=== PATIENT | male | born 1935 | race Caucasian/White ===

== ENCOUNTER 2018-05-29 08:01 | Day surgery (SDC) | payer MEDICARE, OTHER ==
[~2018-05-29 08:01] MED LIST: ACETAMINOPHEN 1,000 MG/100 ML BTL IV ONE; CELECOXIB 100 MG CAPSULE PO ONE; FAMOTIDINE 20MG TABLET PO ONE; MECLIZINE 25 MG TABLET PO ONE; METOCLOPRAMIDE 10 MG TABLET PO ONE; VANCOMYCIN HCL 1,000 MG in DEXTROSE 5 % IN WATER 250 ML IVPB ONE
[2018-05-29] MEDS ORDERED: MIDAZOLAM HCL 2MG/2ML VIAL IV ONE (08:02)
[2018-05-29] MEDS ORDERED: DEXAMETHASONE 4 MG/ML 1ML VIAL IVP ONE (08:02)
[2018-05-29] MEDS ORDERED: PROPOFOL 10 MG/ML VIAL IV ONE (08:02)
[2018-05-29] MEDS ORDERED: LIDOCAINE 2% MDV (20MG/ML) 20ML VIAL IV ONE (08:02)
[2018-05-29] MEDS ORDERED: TRANEXAMIC ACID 1,000 MG/10 ML ML IV ONE ×2 (08:02)
[2018-05-29] MEDS ORDERED: KETOROLAC 30 MG/ML VIAL IVP ONE (08:02)
[2018-05-29] MEDS ORDERED: BUPIVACAINE LIPOSOME 266MG/20ML VIAL IV ONE (08:02)
[2018-05-29] MEDS ORDERED: BUPIVACAINE 0.5% W/EPI MPF 30 ML VIAL IVP ONE ×2 (08:02)
[2018-05-29] MEDS ORDERED: VANCOMYCIN HCL 1 GM VIAL IVPB ONE ×2 (08:02)
[2018-05-29] MEDS ORDERED: ROPIVACAINE HCL (NAROPIN) /PF 5MG/ML 20ML VIAL IV ONE (08:02)
[2018-05-29] MEDS ORDERED: DIPHENHYDRAMINE HCL 25 MG CAPSULE PO PRN (08:38)
[2018-05-29] MEDS ORDERED: AL HYDROX/MAG HYDROX 30ML UD PO PRN (08:38)
[2018-05-29] MEDS ORDERED: HYDROCODONE/APAP 5/325MG TABLET PO PRN ×2 (08:38)
[2018-05-29] MEDS ORDERED: ACETAMINOPHEN 325 MG TAB PO PRN (08:38)
[2018-05-29] MEDS ORDERED: MAGNESIUM HYDROXIDE 30 ML UDC PO PRN (08:38)
[2018-05-29] MEDS ORDERED: HYDROMORPHONE HCL 2 MG/ML VIAL IM PRN ×2 (08:38)
[2018-05-29] MEDS ORDERED: PROMETHAZINE HCL 12.5 MG in 0.9 % SODIUM CHLORIDE 100ML 50 ML IVPB PRN (08:38)
[2018-05-29] MEDS ORDERED: METOCLOPRAMIDE HCL 10 MG/2 ML VIAL IVP PRN (08:38)
[2018-05-29] MEDS ORDERED: ONDANSETRON HCL IV 4 MG/2 ML VIAL IVP PRN (08:38)
[2018-05-29] MEDS ORDERED: NALOXONE 0.4 MG/1 ML VIAL IVP PRN (08:38)
[2018-05-29] MEDS ORDERED: KETOROLAC 30 MG/ML VIAL IVP PRN ×2 (08:38)
[2018-05-29] MEDS ORDERED: ACETAMINOPHEN W/ CODEINE 300MG/30MG TABLET PO PRN ×2 (08:38)
[2018-05-29] MEDS ORDERED: BISACODYL 10 MG SUPP RC PRN (08:38)
[2018-05-29] MEDS ORDERED: HYDROCODONE/APAP 7.5/325MG TABLET PO PRN ×2 (08:38)
[2018-05-29] MEDS ORDERED: ACETAMINOPHEN W/ CODEINE 300MG/60MG TABLET PO PRN ×2 (08:38)
[2018-05-29] MEDS ORDERED: ZOLPIDEM TARTRATE 5 MG TABLET PO PRN (08:38)
[2018-05-29 08:56] LABS: ABO GROUP O; ANTIBODY SCREEN NEGATIVE (NEGATIVE); RH TYPE POSITIVE
[2018-05-29 09:33] LABS: INR 1.1; PROTHROMBIN TIME (PATIENT) 10.9 SECONDS (9.5-12.1)
[2018-05-29] MEDS ORDERED: DEXTROSE 5 % AND 0.9 % NACL 1,000 ML IV PRN (12:30)
[2018-05-29] MEDS: DOCUSATE SODIUM 100 MG CAPSULE PO SCH ×2 (13:41→22:08)
[2018-05-29] MEDS: FERROUS SULFATE 325 MG TAB PO SCH ×2 (13:41→22:08)
[2018-05-29] MEDS: PREDNISOLONE ACETATE 1% OPTH 10ML BOTTLE OPTH SCH (14:08)
--- NOTE | 2018-05-29 15:31 | Rehab Evaluation ---
Patient Information - Patient Information Diagnosis: R knee OA Ordered Treatment: PT Evaluate and Treat Status: Initial Evaluation Surgery: Yes (R TKA) Date of Surgery: 05/29/18 Past Medical/Surgical Hx: PAST MEDICAL/SURGICAL HISTORY Past Surgical History bilat hip arthroplasy pacemaker 2015 c scope bilat cat cardioversions heart cath PMH - Respiratory Hx Respiratory Disorders Yes Hx Pneumonia Yes: as a kid Hx Sleep Apnea Yes Hx of CPAP Yes PMH - Cardiovascular Hx Cardiovascular Disorders Yes Hx Abnormal EKG Yes Hx Cardiac Catheterization Yes Hx Deep Vein Thrombosis Yes: 7-10 yrs ago Hx Hypertension Yes: on meds good control Hx Irregular Heartbeat Yes Hx Pacemaker/Defibrillator Yes: 2016 Hx Vascular Disease Yes: LE Exercise Tolerance Fair PMH - Neuro Hx Neurological Disorders Yes Hx Headaches Yes: occass PMH - GI Hx Gastrointestinal Disorders Yes PMH - Hx Genitourinary Disorders No PMH - Endocrine Hx Endocrine Disorders No PMH - Musculoskeletal Hx Musculoskeletal Disorders Yes Hx Arthritis Yes PMH - Psych Hx Psychiatric Problems Yes Hx Anxiety Yes PMH - Hematology/Oncology Hx Hematology/Oncology Yes Disorders Hx Bruising Yes: bruises easily Hx Clotting Problems Yes Hx Blood Transfusion Reaction No Premorbid Status: Detail (Patient was previously IND with all mobility and transfers. Patient used a cane during ambulation.) Social History: Detail (Patient lives in a 1 story home with her spouse. Patient has 2 steps to enter the home with no hand rails. Patient has a walk in shower and an elevated toilet in the bathroom. Patient owns a front wheeled walker, cane, and shower bench.) Precautions: [place], Fall, Other (WBAT on R LE.) - Time With Patient Total Time Spent With Patient (Min): 30 Treatment Procedures: Detail (Initial evaluation, gait training, and exercise education.) Subjective Information - Subjective Information Per Patient (Patient was lying supine in bed upon arrival with no complaints of pain.) Objective Data - Pain Pain Present: No - Mental Status Patient Orientation: Oriented x3 - Visual Perception Appears within normal limits for therapeutic activities - ROM Not within normal limits (Patients R knee ROM is limited due to status post surgery.) - Strength/Tone Not within normal limits (Patient has functional strength during ambulation. Patient has limited R knee strength due to status post surgery.) - Bed Mobility Independent (Patient was IND with supine to and from sit transfers.) - Transfers Independent (Patient is IND with sit to and from stand transfers. Patient required verbal cues for hand placement.) - Balance Balance Sitting: Good Balance Standing: Fair - Sensation Intact - Gait Detail (Patient ambulated approx 200' using a front wheeled walker and supervision for safety. WBAT on R LE.) Therapy Assessment - Therapy Assessment Detail (Evaluation was of low complexity due to stable condition. Patient was IND with all mobility and transfers. Feel patient will progress well with continued PT. Patient was left lying supine in bed with call light in reach.) Patient Education - Patient Education Teaching Topic: Exercise/Activity (ankle pumps, glut sets, quad sets, hamstring sets, heel slides, SLR.) Response: Return Demonstration, Verbalize Understanding Teaching Method: Discussion, Demonstration Teaching Recipient: Patient Barriers To Learning: Age Related Problem List - Problem List Physical Therapy Problem List: Detail (1) R knee ROM 2) R knee strength) Goals - Goals Physical Therapy Goals: 1) Patient will ambulate a flight of 3 stairs using a folded walker, hand rail, and supervision for safety with proper technique. Prognosis - Prognosis Good Plan - Plan Physical Therapy Plan: Patient will be seen 1-2 more times for stair training. Patient will then be discharged to home PT.
[2018-05-29] MEDS: TRAMADOL HCL 50 MG TABLET PO PRN ×2 (16:29→20:19)
[2018-05-29] MEDS: VANCOMYCIN HCL 1,000 MG in DEXTROSE 5 % IN WATER 250 ML IVPB SCH ×2 (20:19)
[2018-05-29] MEDS: SOTALOL HCL 80 MG TABLET PO SCH (22:08)
[2018-05-30 06:41] LABS: HEMATOCRIT 36.9 % (42.0-52.0); HEMOGLOBIN 12.4 gm/dl (14.0-18.0)
[2018-05-30] MEDS: TRAMADOL HCL 50 MG TABLET PO PRN ×2 (07:34→13:09)
--- NOTE | 2018-05-30 08:44 | Rehab Evaluation ---
Patient Information - Patient Information Diagnosis: R knee OA Ordered Treatment: OT Evaluate and Treat Status: Initial Evaluation Surgery: Yes (R TKA) Date of Surgery: 05/29/18 Past Medical/Surgical Hx: PAST MEDICAL/SURGICAL HISTORY Past Surgical History bilat hip arthroplasy pacemaker 2015 c scope bilat cat cardioversions heart cath PMH - Respiratory Hx Respiratory Disorders Yes Hx Pneumonia Yes: as a kid Hx Sleep Apnea Yes Hx of CPAP Yes PMH - Cardiovascular Hx Cardiovascular Disorders Yes Hx Abnormal EKG Yes Hx Cardiac Catheterization Yes Hx Deep Vein Thrombosis Yes: 7-10 yrs ago Hx Hypertension Yes: on meds good control Hx Irregular Heartbeat Yes Hx Pacemaker/Defibrillator Yes: 2016 Hx Vascular Disease Yes: LE Exercise Tolerance Fair PMH - Neuro Hx Neurological Disorders Yes Hx Headaches Yes: occass PMH - GI Hx Gastrointestinal Disorders Yes PMH - Hx Genitourinary Disorders No PMH - Endocrine Hx Endocrine Disorders No PMH - Musculoskeletal Hx Musculoskeletal Disorders Yes Hx Arthritis Yes PMH - Psych Hx Psychiatric Problems Yes Hx Anxiety Yes PMH - Hematology/Oncology Hx Hematology/Oncology Yes Disorders Hx Bruising Yes: bruises easily Hx Clotting Problems Yes Hx Blood Transfusion Reaction No Premorbid Status: Detail (Patient was previously IND with all mobility and transfers. Patient used a cane during ambulation.) Social History: Detail (Patient lives with spouse in a 1 story home with basement, he generally stays on the main floor. Patient has 2 steps to enter the home with no hand rails. Patient has a walk in shower, no grab bars and an elevated toilet in the bathroom. He is planning to purchase a seat for the shower. Patient owns a front wheeled walker, cane, and securities consultant.) Precautions: [place], Fall, Other (WBAT on R LE.) - Time With Patient Total Time Spent With Patient (Min): 30 Treatment Procedures: Detail (OT eval low complexity) Subjective Information - Subjective Information Per Patient Objective Data - Pain Pain Present: Yes (3-510) - Mental Status Patient Orientation: Oriented x3 - Visual Perception Appears within normal limits for therapeutic activities - ROM Within normal limits (Franki UE AROM WNL) - Strength/Tone Within normal limits (Franki UE strength WNL) - Coordination Appears within normal limits for therapeutic activities - Bed Mobility Independent (Ind with supine to sit) - Transfers Independent - Balance Balance Sitting: Good Balance Standing: Good - Sensation Intact - ADL's/IADL's Detail (Pt verbalized that he was able to complete self cares with assistance and his spouse would be available if he needed help. He did not feel it was necessary to perform dressing tasks today. Pt educated re: kitchen and shower safety and modifications, he verbalized learning.) Therapy Assessment - Therapy Assessment Detail (Pt feels he will not have any difficulty with self cares and will assist as needed.) Problem List - Problem List Physical Therapy Problem List: Detail (1) R knee ROM 2) R knee strength) Occupational Therapy Problem List: Detail (No current IP OT problems identified. ) Goals - Goals Physical Therapy Goals: 1) Patient will ambulate a flight of 3 stairs using a folded walker, hand rail, and supervision for safety with proper technique. Occupational Therapy Goals: No current IP OT goals identified. Prognosis - Prognosis Good Plan - Plan Physical Therapy Plan: Patient will be seen 1-2 more times for stair training. Patient will then be discharged to home PT. Occupational Therapy Plan: No further IP OT recommended. Thank you for this referral.
[2018-05-30] MEDS: FERROUS SULFATE 325 MG TAB PO SCH (09:29)
[2018-05-30] MEDS: SOTALOL HCL 80 MG TABLET PO SCH (09:30)
[2018-05-30] MEDS: DOCUSATE SODIUM 100 MG CAPSULE PO SCH (09:30)
[2018-05-30] MEDS: PREDNISOLONE ACETATE 1% OPTH 10ML BOTTLE OPTH SCH (09:31)
--- NOTE | 2018-05-30 09:44 | Physical Therapy Tx Note ---
Physical Therapy Tx Note - Treatment Note Tolerated: Good Total Time Spent With Patient: 20 Physical Therapy Tx Note: Detail (Patient was lying supine in bed upon arrival with no complaints of pain. Patient ambulated approx. 150' using a front wheeled walker and supervision for safety. Patient also ambulated a flight of 3 stairs x 2. Once using a folded walker, hand rail and supervision, and once using a cane, hand rail and supervision with proper technique. Patient was left sitting EOB with call light in reach.) Physical Therapy Problem List: Detail (1) R knee ROM 2) R knee strength) Physical Therapy Goals: 1) Patient will ambulate a flight of 3 stairs using a folded walker, hand rail, and supervision for safety with proper technique. ( Goal Met) Prognosis: Good Physical Therapy Plan: Patient has met all IP PT goals and will be discharged to home PT.
[2018-05-30] MEDS: VANCOMYCIN HCL 1,000 MG in DEXTROSE 5 % IN WATER 250 ML IVPB SCH ×2 (09:54)
[2018-05-30] MEDS ORDERED: VALSARTAN 80 MG TAB PO SCH (10:00)
[2018-05-30] MEDS ORDERED: RIVAROXABAN 10 MG TABLET PO SCH (10:00)
[2018-05-30] MEDS ORDERED: CELECOXIB 100 MG CAPSULE PO SCH (10:00)
[2018-05-30] MEDS ORDERED: DILTIAZEM HCL 120 MG ER CAPSULE PO SCH (10:00)
[2018-05-30] MEDS ORDERED: WARFARIN 1 MG TABLET PO SCH (17:00)
[2018-05-30] MEDS ORDERED: WARFARIN 5 MG TAB PO SCH (17:00)
--- NOTE | 2018-05-30 20:42 | Operative Note ---
DATE OF SURGERY: 05/29/2018 PREOPERATIVE DIAGNOSIS: End-stage right knee arthrosis. POSTOPERATIVE DIAGNOSIS: End-stage valgus right knee arthrosis. PROCEDURE: Right total knee arthroplasty. SURGEON: Michael Connell M.D. ANESTHESIA: Spinal. COMPLICATIONS: None. BLOOD LOSS: Minimal. OPERATIVE FINDINGS: Severe [id number] arthrosis, severe osteoporosis of the bone. COMPONENTS PLACED: [employer] Journey II Oxinium total knee arthroplasty system, Jumbo size 9 femoral component, size 8 tibial baseplate, a 9 mm thick tibial poly insert, and a 38 mm cemented patellar component. INDICATIONS FOR OPERATION: This is a 82-year-old male who has had end-stage knee arthrosis for several years. He failed nonoperative treatment and is scheduled for total knee arthroplasty. I explained the risks and benefits to him in detail for his diagnosis and procedures including but not limited to, infection, nerve injury, vessel injury, persistent pain, subsequent numbness and tingling in the knee, periprosthetic fracture, need for resection arthroplasty should the components become infected or loosened, nerve injury, vessel injury, blood clot, need for anticoagulation to prevent blood clots and the risks associated with these medications and need for further procedures and all of his questions were answered. Rehab and course were outlined and he agreed to proceed. PROCEDURE: The patient was brought into the O.R. and placed in the supine position for proper surgery. He had spinal anesthesia induced and her right lower extremity was prepped and draped in sterile fashion. The right knee was prepped again with ChloraPrep after it was draped. Intraoperative time-out was performed. The knee was injected with 0.5% Marcaine with Epinephrine. The leg was exsanguinated with an Esmarch. The knee was flexed and the tourniquet inflated to 215 mmHg pressure. Next, the skin and subcutaneous tissues were dissected down to the capsule. I incised the capsule medially around the medial border of the of the patella to the tibial tubercle. I incised the vastus medialis in line with its fibers in a mid vastus approach. I everted the patella. I partially resected the retropatellar fat pad and elevated the capsule subperiosteally and medially and exposed the knee and flexed the knee. He had severe [id number] arthrosis and massive size knee as well. There was severe erosion into the medial tibial plateau. Next, we drilled an intercondylar drill hole and inserted the intramedullary guide katiuska with 6 degree cutting block, aligned off the distal femoral condyles and pinned it in +2 mm position and cut the distal femoral condyles. We placed the sizing jig on the distal femoral condyles. It was sized on size 11. We don't have an 11 or a 10. The largest we have is 9 Jumbo. That's the largest they make and we used that. We placed the size 9 cutting jig off the previously placed pinholes and then dialed in the anterior cut anteriorly so it would come out flush and as far anterior as we could and cut that. It was a good cut with slight notching only, no significant notching. We pinned it and then cut the remainder of the chamfer cuts in the usual fashion. Next, we placed the size 9 femoral component, centered it, pinned it, removed osteophytes off the periphery, inserted the resection collet and reamed out and box osteotomed out the cruciate bone block. Next, then attention was turned to the tibia. We inserted the external alignment jig and spikes in the intertubercular groove two fingerbreadths distally off the anterior tibial cortex and referenced for a 9 mm cut off the higher lateral plateau to just cover the medial erosion, which it did using our resection checking blade and then we pinned that in place provisionally with two anterior and posterior pins. We rechecked the alignment with a drop katiuska centered on the tibial anatomic axis, cross-pinned the cutting jig to complete its fixation and cut the tibia. Next, we removed osteophytes from the posterior femoral condyles and checked flexion and extension gaps. They were symmetric with a 9 mm thick poly insert. Overall alignment of the cuts in extension with an anatomic valgus orientation with the alignment katiuska centered on the hip joint and ankle joint. We took the knee into flexion. We sized the tibial baseplate to a size 8. We replaced all trial components and set the rotation of the tibial baseplate again in extension using the alignment katiuska centered on the hip joint and ankle joint. We marked with electrocautery purdy on the anterior tibial cortex off the laser purdy on the tibial baseplate. Attention was turned to the patella. We sized the massive patella and set the cutting jig at 12 mm to allow for a 9 mm thick poly insert. It was thin but had a large diameter. We cut the patella and chamfered off the lateral patellar facet. We medialized as much as possible and drilled three peg holes. It measured to be 38, which is the maximum size again. We removed osteophytes off the periphery. We placed the trial patellar component. We mixed cement. We did a trial range of motion. The patella tracked nicely handsfree. He had full extension, 0 flexion to 140 to 150 degrees and again symmetric flexion and extension gaps. We took the knee in flexion and seated the tibial baseplate off the previously placed electrocautery purdy. We pinned it in place and then reamed out and keel-punched the keel hole. Next, then we changed gloves and brought in a clean sheet. We copiously irrigated the bony surfaces with pulse lavage and antibiotic solution. We pre- coated both surfaces. We impacted down the tibial component first and then the femoral component and placed the trial tibial poly liner. We held the knee in extension. We clamped down the patellar component until cement hardened. Once cement hardened, we took the knee into flexion and distracted the knee with bone hook and sponge. We removed excess cement around the edges of the components. We injected our pain mixture of tranexamic acid, Exparel, and 0.5% Marcaine with Epinephrine into the posterior medial and lateral capsule, periosteum medial and lateral working deep to superficial, vastus medialis and quadriceps and patellar tendon. Next, we then inserted the real tibial poly inserted and verified it was interlocking medially and laterally. Final range of motion revealed the same. We irrigated copiously. We closed the knee in flexion with a #2 running Quill. We irrigated again and closed the skin deep with #2-0 Vicryl and sterile dressing was applied with Acticoat and the provisional dressing. It will changed prior to discharge tomorrow to LAURA dressing left on for one week. The patient tolerated the procedure well. No intraoperative complications. All sponge, needle, and blade counts correct. Recovery stable, neurovascularly intact. CC: Dr. Robert Skelton JOB NUMBER: [id number] MTDD
== END 2018-05-30 17:00 | disposition home health service (06) ==
LOC: SUR 08:01 → MEDSURG 13:05 → SUR 05-30 17:00
PROVIDERS: ATTEND Orthopaedic Surgery
DX: M17.11 Unilateral primary osteoarthritis, right knee (principal); I10 Essential (primary) hypertension; I48.91 Unspecified atrial fibrillation; Z79.01 Long term (current) use of anticoagulants; I25.10 Atherosclerotic heart disease of native coronary artery without angina pectoris; G47.33 Obstructive sleep apnea (adult) (pediatric); Z95.0 Presence of cardiac pacemaker
CPT/HCPCS: 27447; 01402; 64417; 85018; 85014; 85610; 86900; 86901; 86850; 94760; 76942; J1885; J3370 ×2; C9290; J3490; J2795; G8978; G8979 ×2; G8980; G8987; G8988; G8989; J7042; J7060

== ENCOUNTER 2019-06-04 06:09 | Day surgery (SDC) | payer MEDICARE, OTHER ==
--- NOTE | 2019-05-30 14:35 | Rehab Joint Replacement Pre-Op ---
Rehab Joint Replacement Pre-Op - Pre-Op Visit Reviewed Items Scheduled for Post Op Visit: No Pre-Op Visit Comment: Pt states that he has had his right knee replaced a year ago and still has all equipment needed for follow up care. Mina Hose/Garment Measurement TKR - Knee High: N/A Mina Hose/Garment Measure THR - Thigh High: Yes (Ankle circumference 10 1/4", calf 18", thigh 25", leg length 33" from gluteal fold to heel. Pt measures for x-large long compression garments.) Exercise Reviewed: Yes Stair Climbing: Yes Cane/Walker/Crutch Training: Yes Vend Equipment - Cane or Walker and OT Kit: N/A List of Venders in the Area: Yes Shower Chair Transfers: Yes Car Transfers: Yes Bed Transfers: Yes Medical History Forms Issued: N/A Functional Scale Forms Issued: N/A Pre-Operative Intake Form - Scheduled Procedure Type of Surgical Procedure: Total Knee - Left - Patient Living Situation Current Living Situation: Spouse/Significant Other Current Housing Situation: One Story Home - Entrance Detail Current Housing Entrance: Steps, Hand Rails - None Number of Steps: 2 - Bathroom Detail Bathroom Setup: Walk-In Shower Toilet Setup: Elevated Toilet, Grab Bars Not Present (Pt uses a toilet bracket with handles for assistance.) - Post-Op Home Assistance Pt has meals following surgery?: Yes Pt has transportation following surgery?: Yes - Equipment Detail Currently Own/Have Access To: Walker, Cane, Shower Bench - Work Status Current Work Status: Currently Employed - PT Employer: Pt drives for [employer] - Additional Detail Patient Returning Home In: Car Patient is scheduled for the following: Home PT (Pt to have in home PT x 2 weeks then outpatient PT to continue therapy at clinic in [place].)
[~2019-06-04 06:09] MED LIST changes: -ACETAMINOPHEN 1,000 MG/100 ML BTL IV ONE; +ACETAMINOPHEN 500 MG TABLET PO ONE; +CEFAZOLIN 1 Gram 1 GM/50 ML BAG IVPB ONE; +CEFAZOLIN 2 Gram 2 GM/50 ML BAG IVPB ONE; -MECLIZINE 25 MG TABLET PO ONE; +SCOPOLAMINE 1 PATCH TDSY TD ONE; +VANCOMYCIN 1GM/200ML PREMIX 1 GM/200 ML PIGGYBACK IVPB ONE; -VANCOMYCIN HCL 1,000 MG in DEXTROSE 5 % IN WATER 250 ML IVPB ONE
[2019-06-04] MEDS ORDERED: PROPOFOL 10 MG/ML VIAL IV ONE (06:10)
[2019-06-04] MEDS ORDERED: DEXAMETHASONE 4 MG/ML 1ML VIAL IVP ONE (06:10)
[2019-06-04] MEDS ORDERED: MIDAZOLAM HCL 2MG/2ML VIAL IV ONE (06:10)
[2019-06-04] MEDS ORDERED: ROPIVACAINE HCL (NAROPIN) /PF 5MG/ML 20ML VIAL IV ONE (06:10)
[2019-06-04] MEDS ORDERED: LIDOCAINE 2% MDV (20MG/ML) 20ML VIAL IV ONE (06:10)
[2019-06-04] MEDS ORDERED: RINGERS SOLUTION,LACTATED 1,000 ML IV ONE ×2 (06:30→08:36)
[2019-06-04 06:35] LABS: PROTHROMBIN TIME (PATIENT) 10.4 SECONDS (9.5-12.1)
[2019-06-04] MEDS ORDERED: HYDROMORPHONE HCL 2 MG/ML VIAL IM PRN ×2 (08:08)
[2019-06-04] MEDS ORDERED: MAGNESIUM HYDROXIDE 30 ML UDC PO PRN (08:08)
[2019-06-04] MEDS ORDERED: TRAMADOL HCL 50 MG TABLET PO PRN ×2 (08:08)
[2019-06-04] MEDS ORDERED: ACETAMINOPHEN 325 MG TAB PO PRN (08:08)
[2019-06-04] MEDS ORDERED: ZOLPIDEM TARTRATE 5 MG TABLET PO PRN (08:08)
[2019-06-04] MEDS ORDERED: NALOXONE 0.4 MG/1 ML VIAL IVP PRN (08:08)
[2019-06-04] MEDS ORDERED: DIPHENHYDRAMINE HCL 25 MG CAPSULE PO PRN (08:08)
[2019-06-04] MEDS ORDERED: HYDROCODONE/APAP 5/325MG TABLET PO PRN ×2 (08:08)
[2019-06-04] MEDS ORDERED: AL HYDROX/MAG HYDROX 30ML UD PO PRN (08:08)
[2019-06-04] MEDS ORDERED: METOCLOPRAMIDE HCL 10 MG/2 ML VIAL IVP PRN (08:08)
[2019-06-04] MEDS ORDERED: PROMETHAZINE HCL 12.5 MG in 0.9 % SODIUM CHLORIDE 100ML 50 ML IVPB PRN (08:08)
[2019-06-04] MEDS ORDERED: KETOROLAC 30 MG/ML VIAL IVP PRN (08:08)
[2019-06-04] MEDS ORDERED: ACETAMINOPHEN W/ CODEINE 300MG/30MG TABLET PO PRN ×2 (08:08)
[2019-06-04] MEDS ORDERED: ONDANSETRON HCL IV 4 MG/2 ML VIAL IVP PRN (08:08)
[2019-06-04] MEDS ORDERED: BISACODYL 10 MG SUPP RC PRN (08:08)
[2019-06-04] MEDS ORDERED: HYDROCODONE/APAP 7.5/325MG TABLET PO PRN (08:08)
[2019-06-04] MEDS ORDERED: ACETAMINOPHEN W/ CODEINE 300MG/60MG TABLET PO PRN (08:08)
[2019-06-04 08:12] LABS: ABO GROUP O; ANTIBODY SCREEN NEGATIVE (NEGATIVE); RH TYPE POSITIVE
[2019-06-04] MEDS ORDERED: TRANEXAMIC ACID 1,000 MG/10 ML ML IU ONE (08:33)
[2019-06-04] MEDS ORDERED: BUPIVACAINE 0.5% W/EPI MPF 30 ML VIAL SQ ONE (08:33)
[2019-06-04] MEDS ORDERED: BUPIVACAINE LIPOSOME 266MG/20ML VIAL SQ ONE (08:33)
[2019-06-04] MEDS ORDERED: TRANEXAMIC ACID 1,000 MG/10 ML ML IV ONE (08:35)
[2019-06-04] MEDS ORDERED: DOCUSATE SODIUM 100 MG CAPSULE PO SCH (10:00)
[2019-06-04] MEDS ORDERED: FERROUS SULFATE 325 MG TAB PO SCH (10:00)
[2019-06-04] MEDS ORDERED: DEXTROSE 5 % AND 0.9 % NACL 1,000 ML IV PRN (10:30)
--- NOTE | 2019-06-04 15:03 | Rehab Evaluation ---
Patient Information - Patient Information Diagnosis: L knee DJD Ordered Treatment: PT Evaluate and Treat Status: Initial Evaluation Surgery: Yes (L TKA) Date of Surgery: 06/04/19 Past Medical/Surgical Hx: PAST MEDICAL/SURGICAL HISTORY Past Surgical History RTKA 05-29-18 bilat hip arthroplasy pacemaker 2015 c scope bilat cat cardioversions heart cath PMH - Respiratory Hx Respiratory Disorders Yes Hx Pneumonia Yes: as a kid Hx Sleep Apnea Yes Hx of CPAP Yes PMH - Cardiovascular Hx Cardiovascular Disorders Yes Hx Abnormal EKG Yes Hx Cardiac Catheterization Yes Hx Deep Vein Thrombosis Yes: 2011 Hx Hypertension Yes: on meds good control Hx Irregular Heartbeat Yes: A FIB CONTROLLED WITH MEDS Hx Pacemaker/Defibrillator Yes: 2015 Hx Vascular Disease Yes: LE Exercise Tolerance Fair PMH - Neuro Hx Neurological Disorders Yes Hx Headaches Yes: HX OF VERY RARE NOW PMH - GI Hx Gastrointestinal Disorders Yes PMH - Hx Genitourinary Disorders No PMH - Endocrine Hx Endocrine Disorders No PMH - Musculoskeletal Hx Musculoskeletal Disorders Yes Hx Arthritis Yes: LEFT KNEE PMH - Psych Hx Psychiatric Problems Yes Hx Anxiety Yes PMH - Hematology/Oncology Hx Hematology/Oncology Yes Disorders Hx Bruising Yes: bruises easily Hx Clotting Problems Yes Hx Blood Transfusion Reaction No Premorbid Status: Detail (The patient was independent with all mobility prior to surgery.) Social History: Detail (The patient lives with spouse in a one story house with two steps and no railings at the enterance. The bathroom is equipped with: a walk in shower, shower bench, elevated toilet and riser seat with hand rails. No grab bars were present in the bathroom. The patient has a front wheeled walker, single point cane .) Precautions: [place], Fall, Other (WBAT on L LE) - Time With Patient Total Time Spent With Patient (Min): 30 Treatment Procedures: Detail (Initial Evaluation, low complexity) Subjective Information - Subjective Information Per Patient (The patient had only minimal complaints of pain.) Objective Data - Mental Status Patient Orientation: Oriented x3 - Visual Perception Appears within normal limits for therapeutic activities - ROM Not within normal limits (The patient's L knee AROM is limited as to be expected following surgery.) - Strength/Tone Not within normal limits (The patient's L LE strength was not tested s/p surgery, however was functional. R LE strength was WNL.) - Transfers Independent (The patient was independent with sit to and from stand transfer.) - Balance Balance Sitting: Good Balance Standing: Good - Gait Detail (The patient ambulated with front wheeled walker WBAT on the L LE a distance of 444 feet x 1 with supervision for safety only.) Therapy Assessment - Therapy Assessment Detail (The patient was independent with sit to and from stand transfer and ambulation. Bed mobility was not tested secondary to patient was up in chair when PT arrived. Anticipate the patient will meet inpatient goals in 1-2 visits.) Problem List - Problem List Physical Therapy Problem List: Detail (Decreased L knee AROM and decreased LE strength) Goals - Goals Physical Therapy Goals: 1) The patient will ambulate on stairs using proper technique with supervision for safety. 2) The patient will be independent with TKA HEP. Prognosis - Prognosis Good Plan - Plan Physical Therapy Plan: PT 1-2 sessions for gait training on stairs and instruction in TKA HEP.
[2019-06-04] MEDS: VANCOMYCIN 1GM/200ML PREMIX 1 GM/200 ML PIGGYBACK IVPB SCH (18:47)
[2019-06-04] MEDS ORDERED: DILTIAZEM 180MG CR CAPSULE PO SCH (22:00)
[2019-06-04] MEDS: FERROUS SULFATE 325 MG TAB PO SCH (22:02)
[2019-06-04] MEDS: DOCUSATE SODIUM 100 MG CAPSULE PO SCH (22:02)
[2019-06-04] MEDS: SOTALOL HCL 80 MG TABLET PO SCH (22:02)
[2019-06-05] MEDS: VANCOMYCIN 1GM/200ML PREMIX 1 GM/200 ML PIGGYBACK IVPB SCH (06:02)
[2019-06-05 06:18] LABS: HEMOGLOBIN 12.6 gm/dl (14.0-18.0)
--- NOTE | 2019-06-05 08:22 | Rehab Evaluation ---
Patient Information - Patient Information Diagnosis: L knee DJD Ordered Treatment: OT Evaluate and Treat Status: Initial Evaluation Surgery: Yes (L TKA) Date of Surgery: 06/04/19 Past Medical/Surgical Hx: PAST MEDICAL/SURGICAL HISTORY Past Surgical History RTKA 05-29-18 bilat hip arthroplasy pacemaker 2016 c scope bilat cat cardioversions heart cath PMH - Respiratory Hx Respiratory Disorders Yes Hx Pneumonia Yes: as a kid Hx Sleep Apnea Yes Hx of CPAP Yes PMH - Cardiovascular Hx Cardiovascular Disorders Yes Hx Abnormal EKG Yes Hx Cardiac Catheterization Yes Hx Deep Vein Thrombosis Yes: 2011 Hx Hypertension Yes: on meds good control Hx Irregular Heartbeat Yes: A FIB CONTROLLED WITH MEDS Hx Pacemaker/Defibrillator Yes: 2015 Hx Vascular Disease Yes: LE Exercise Tolerance Fair PMH - Neuro Hx Neurological Disorders Yes Hx Headaches Yes: HX OF VERY RARE NOW PMH - GI Hx Gastrointestinal Disorders Yes PMH - Hx Genitourinary Disorders No PMH - Endocrine Hx Endocrine Disorders No PMH - Musculoskeletal Hx Musculoskeletal Disorders Yes Hx Arthritis Yes: LEFT KNEE PMH - Psych Hx Psychiatric Problems Yes Hx Anxiety Yes PMH - Hematology/Oncology Hx Hematology/Oncology Yes Disorders Hx Bruising Yes: bruises easily Hx Clotting Problems Yes Hx Blood Transfusion Reaction No Premorbid Status: Detail (The patient was independent with all mobility prior to surgery. He was responsible for yard work and shared laundry tasks with his spouse.) Social History: Detail (The patient lives with spouse in a one story house with two steps and no railings at the entrance. The bathroom is equipped with: a walk in shower, hand held shower head, shower bench, elevated toilet and riser seat with hand rails. No grab bars were present in the bathroom. The patient has a front wheeled walker and single point cane .) Precautions: [place], Fall, Other (WBAT on L LE) - Time With Patient Total Time Spent With Patient (Min): 40 Treatment Procedures: Detail (OT eval low complexity) Subjective Information - Subjective Information Per Patient Objective Data - Pain Pain Present: Yes (10/08) - Mental Status Patient Orientation: Oriented x3 - Visual Perception Appears within normal limits for therapeutic activities - ROM Within normal limits (Franki UE AROM WNL) - Strength/Tone Within normal limits (Franki UE strength WNL) - Coordination Appears within normal limits for therapeutic activities - Transfers Independent (Ind with sit to stand from recliner) - Balance Balance Sitting: Good Balance Standing: Good - Sensation Intact - Gait Detail (Pt ambulating in room with 2 wheeled walker and supervision) - ADL's/IADL's Detail (Pt educated and able to demonstrate learning of modified LE dressing techniques including doffing slipper sock and donning boxer shorts, shorts, diogenes sock (with assist) and slip on slippers. Pt able to complete toileting Indly in standing. Pt educated and able to verbal understanding of shower and kitchen safety and modifications.) Therapy Assessment - Therapy Assessment Detail (Pt is Ind with modified LE dressing techniques.) Problem List - Problem List Physical Therapy Problem List: Detail (Decreased L knee AROM and decreased LE strength) Occupational Therapy Problem List: Detail (No current IP OT problems identified.) Goals - Goals Physical Therapy Goals: 1) The patient will ambulate on stairs using proper technique with supervision for safety. 2) The patient will be independent with TKA HEP. Occupational Therapy Goals: No current IP OT goals identified. Prognosis - Prognosis Good Plan - Plan Physical Therapy Plan: PT 1-2 sessions for gait training on stairs and instruction in TKA HEP. Occupational Therapy Plan: No further IP OT recommended. Thank you for this referral.
[2019-06-05] MEDS: FERROUS SULFATE 325 MG TAB PO SCH (09:55)
[2019-06-05] MEDS: DOCUSATE SODIUM 100 MG CAPSULE PO SCH (09:56)
[2019-06-05] MEDS: SOTALOL HCL 80 MG TABLET PO SCH (09:56)
--- NOTE | 2019-06-05 09:57 | Physical Therapy Tx Note ---
Physical Therapy Tx Note - Treatment Note Total Time Spent With Patient: 20 Physical Therapy Tx Note: Detail (Patient reported that he had a little pain in his L knee today. Patient ambulated 200+ feet over smooth surfaces independently with his front-wheeled walker. He completed stair training on 3 steps with proper technique and demonstrated good understanding. In bed, his HEP was reviewed and he was able to demonstrate all exercises with good technique. Patient was left in the bedside chair with the call light and bedside table within reach. The nursing staff was notified of his position.) Physical Therapy Problem List: Detail (Decreased L knee AROM and decreased LE strength) Physical Therapy Goals: 1) The patient will ambulate on stairs using proper technique with supervision for safety. GOAL MET. 2) The patient will be independent with TKA HEP. GOAL MET Physical Therapy Plan: Patient has met all inpatient goals at this time. He will continue with home health therapy upon his return home.
[2019-06-05] MEDS ORDERED: VALSARTAN 80 MG TAB PO SCH (10:00)
[2019-06-05] MEDS ORDERED: CELECOXIB 100 MG CAPSULE PO SCH (10:00)
[2019-06-05] MEDS ORDERED: RIVAROXABAN 10 MG TABLET PO SCH (10:00)
--- NOTE | 2019-06-11 18:10 | Operative Note ---
DATE OF SURGERY: PREOPERATIVE DIAGNOSIS: End-stage left knee arthrosis. POSTOPERATIVE DIAGNOSIS: End-stage left knee arthrosis. OPERATION: 1. Left total knee arthroplasty. 2. Lateral release. SURGEON: Michael Connell MD ANESTHESIA: Spinal. ANESTHESIA PROVIDER: JAQUI Valdez. COMPLICATIONS: None. ESTIMATED BLOOD LOSS: Minimal. TOURNIQUET TIME: No tourniquet used. OPERATIVE FINDINGS: [id number] erosive knee arthrosis. COMPONENTS PLACED: A 2 g vancomycin cemented N[employer]hew Journey II Oxinium total knee arthroplasty system, size 9 femoral component, a size 8 tibial baseplate, an 11 mm thick tibial poly insert, and 38 mm cemented patellar component. INDICATIONS: This is an 83-year-old male who is well known to me. He is status post right knee arthroplasty done a few years ago and now scheduled for the left. I explained all risks and benefits in detail for the diagnosis and procedure including but not limited to infection, nerve injury, vessel injury, persistent pain, stiffness, numbness, tingling in the knee, periprosthetic fracture, need for resection arthroplasty if components become infected or loosen, nerve injury, vessel injury, blood clot and need for anticoagulation to prevent blood clots and risks associated with these medications, and need for further procedures. All his questions were answered. Rehab and healing course was outlined. He agreed to proceed. PROCEDURE: The patient brought to the OR, placed in the supine position, prepped for surgery. Spinal anesthesia induced. The left lower extremity and knee were prepped and draped in sterile fashion. Left knee prepped again with Chloraprep after it was draped. Intraoperative timeout was performed. Next, the leg was exsanguinated with Esmarch and flexed. Tourniquet was not used again. Incision was marked over the knee. It was infiltrated with 0.5% Marcaine with epinephrine, Exparel, and tranexamic mixture. Next, skin and subcutaneous tissue dissected down. Used our Aquamantys cautery in all layers of approach; subcutaneous, deep, capsule. Incised the capsule medially along the medial border of the patella to the tibial tubercle. Partially resected the retropatellar fat pad and elevated the capsule subperiosteally and medially. Then used Aquamantys cautery entire portion away. Next, flexed the knee. He had severe [id number] erosive medial compartment arthrosis. Next, drilled intracondylar femur drill hole, inserted the intramedullary guide katiuska, 6-degree cutting block, aligned the distal femoral condyles, and pinned it in +2 mm position and cut the distal femoral condyles. Next, we placed a sizing jig on the distal femoral condyle and sized it to be right on size 9 as expected, contralateral size as well. Next, we placed a size 9 cutting jig. We dialed the anterior cut so it would come out flush in the +2 mm position anteriorly without notching. Checked with resection checking blade, then cut the anterior cut. It was a good cut. Then we pinned the cutting jig and cut the remainder of chamfer cuts in the usual fashion. Next, placed a size 9 trial component, centered it, pinned it, cruciate resection block, reamed out and box osteotomed on the cruciate bone block. Removed osteophytes off the periphery. Next, attention was turned to the tibia. Seated the spikes in anterior tubercular groove 2 fingerbreadths distal to the anterior distal cortex in reference for a 7 mm cut off the higher lateral plateau. We pinned the cutting jig provisionally and placed 2 anterior-posterior pins. We rechecked alignment of the cutting jig using a drop katiuska centered on the tibial anatomic axis and cross-pinned it to complete its fixation. Next, then we cut the tibia. It was a good cut and covered the medial erosion nicely. We used a curved osteotome and took off osteophytes at the posterior femoral condyles and cleared the posterior recesses out. Next, then checked the flexion/extension gap. Basically sized up to an 11 mm thick poly insert. Allowed for 2-3 mm of varus/valgus laxity in flexion/extension. Checked overall alignment cuts in extension using alignment katiuska centered on tibial anatomic axis and ankle and hip joint. We had good valgus orientation. Next, took the knee in flexion and sized the tibial baseplate to give the biggest, size 8. Replaced all trial components, set the rotation tibial baseplate again in extension using the alignment katiuska centered on hip joint and ankle joint. Put pen purdy on the anterior tibial cortex off the laser purdy of the tibial baseplate. Next, then attention turned to the patella. We measured the patella to be 27 mm. Set the cutting jig at 18 mm to allow for a 9 mm thick poly insert. Then used a cutting jig to cut the patella. Remeasured. It was right on 18. Then chamfered off the lateral patellar facet. Sized to be 38, the largest size available. Then drilled 3 peg holes, mixed cement, then did a trial range of motion. The patella was slightly tight laterally, subluxed. Therefore, we did later do a lateral pie crust and release. Next, we took the knee into flexion, set the tibial baseplate off the previously placed electrocautery purdy, pinned it in place and reamed out and keel punched the keel hole. Next, we changed gloves, brought in a clean sheet. Copiously irrigated bony surfaces with pulse lavage antibiotic solution. We placed the bone plug in the femoral canal hole and used Aquamantys in the posterior capsule as well to cauterize there. Brought in cement and pre-coat both surfaces. Impacted down the tibial component first removing excess cement and then the femoral component removing excess cement and then placed the trial tibial poly liner and held the knee in extension and clamped down the patella component until the cement hardened removing excess cement. Next, took the knee in flexion, distracted the knee with the bone hook and sponge, irrigated copiously removing excess cement off the edges of the components and then injected our 0.5% Marcaine with epinephrine, tranexamic acid, and Exparel mixture in the posterior capsule medial and lateral periosteum. Next, inserted the real tibial poly insert, verified it was interlocked medially and laterally. Found the range of motion to be the same. We irrigated copiously, again used Aquamantys, and again injected around the periphery, went from deep to superficial with several sticks of our mixture local. Next, we closed the knee in flexion with a running #2 quill suture, the capsule and vastus medialis split. Next, irrigated and closed the skin with 2-0 Vicryl securely and placed provision dressing on with Acticoat and it will be changed to a LAURA dressing prior to discharge. The patient tolerated the procedure well. No intraoperative complications. Sponge, needle, and blade counts correct. Recovery room stable, neurovascularly intact. Discharged to the floor. Will be discharged in 1-2 days to home, home therapy nurse. KASSANDRA
== END 2019-06-05 11:25 | disposition home health service (06) ==
LOC: SUR 06:09 → MEDSURG 10:31 → SUR 06-05 11:25
PROVIDERS: ATTEND Orthopaedic Surgery
DX: M17.12 Unilateral primary osteoarthritis, left knee (principal); I10 Essential (primary) hypertension; I48.91 Unspecified atrial fibrillation; Z79.01 Long term (current) use of anticoagulants; Z95.0 Presence of cardiac pacemaker; G47.33 Obstructive sleep apnea (adult) (pediatric)
CPT/HCPCS: 27447; 01402; 64447; 85018; 85014; 85610; 86900; 86901; 86850; 76942; J3490; J1885; J0690 ×2; C9290; J2795; J3370 ×2; C1776; J7042; J7120